=== PATIENT | male | born 1990 | race African-American/Black ===

== ENCOUNTER 2024-01-29 22:31 | Emergency (ER) | payer MEDICAID ==
[~2024-01-29] VITALS: Ht 177.8 cm; Wt 91.0 kg
[2024-01-29 22:34] VITALS: TEMP 98; O2SAT 100
[2024-01-30 00:05] VITALS: BP 168/104; PULSE 103; RESP 18
[2024-01-30] MEDS: KETOROLAC 30MG/ML VIAL IM STA (00:05)
== END 2024-01-30 01:37 | disposition home or self-care (01) ==
LOC: ER 22:31
DX: S50.311A Abrasion of right elbow, initial encounter (principal); M25.571 Pain in right ankle and joints of right foot; V49.49XA Driver injured in collision with other motor vehicles in traffic accident, initial encounter; Y93.89 Activity, other specified; Y92.89 Other specified places as the place of occurrence of the external cause; Y99.8 Other external cause status
CPT/HCPCS: 99284; 71045; 72170; 73070; 73560; 73590; 73600; 73620; 96372; J1885